=== PATIENT | male | born 1940 | race Caucasian/White ===

== ENCOUNTER → 2016-07-09 | Outpatient (CLI) | payer MEDICARE | LOC: EMS 09:43 | PROVIDERS: ATTEND Emergency Medicine | DX: I62.9 Nontraumatic intracranial hemorrhage, unspecified (principal); I48.91 Unspecified atrial fibrillation ==

== ENCOUNTER → 2016-08-04 | Outpatient (REF) | payer MEDICARE | LOC: LAB 11:09 | PROVIDERS: ATTEND Family Medicine | DX: Z51.81 Encounter for therapeutic drug level monitoring (principal); Z79.01 Long term (current) use of anticoagulants | CPT/HCPCS: 85610 ==

== ENCOUNTER → 2016-08-11 | Outpatient (REF) | payer MEDICARE | LOC: LAB 10:57 | PROVIDERS: ATTEND Family Medicine | DX: Z51.81 Encounter for therapeutic drug level monitoring (principal); Z79.01 Long term (current) use of anticoagulants | CPT/HCPCS: 85610 ==

== ENCOUNTER → 2016-08-25 | Outpatient (REF) | payer MEDICARE | LOC: LAB 09:03 | PROVIDERS: ATTEND Family Medicine | DX: Z51.81 Encounter for therapeutic drug level monitoring (principal); Z79.01 Long term (current) use of anticoagulants | CPT/HCPCS: 85610 ==

== ENCOUNTER → 2016-09-08 | Outpatient (REF) | payer MEDICARE ==
[2016-09-08 10:08] LABS: ANION GAP 16.7 MEQ/L (3-15)
== END ==
LOC: LAB 09:19
PROVIDERS: ATTEND Family Medicine
DX: Z51.81 Encounter for therapeutic drug level monitoring (principal); Z79.01 Long term (current) use of anticoagulants; I10 Essential (primary) hypertension
CPT/HCPCS: 80048; 85610

== ENCOUNTER → 2016-09-22 | Outpatient (REF) | payer MEDICARE | LOC: LAB 14:33 | PROVIDERS: ATTEND Family Medicine | DX: Z51.81 Encounter for therapeutic drug level monitoring (principal); Z79.01 Long term (current) use of anticoagulants | CPT/HCPCS: 85610 ==

== ENCOUNTER → 2016-10-06 | Outpatient (REF) | payer MEDICARE | LOC: LAB 11:49 | PROVIDERS: ATTEND Family Medicine | DX: Z51.81 Encounter for therapeutic drug level monitoring (principal); Z79.01 Long term (current) use of anticoagulants | CPT/HCPCS: 85610 ==